=== PATIENT | female | born 1970 | race Caucasian/White ===

== ENCOUNTER 2016-09-20 20:59 | Inpatient (IN) | payer MEDICAID ==
[~2016-09-20] VITALS: Ht 162.6 cm; Wt 114.0 kg
--- NOTE | ~2016-09-20 | CON ---
PATIENT'S NAME: DARWIN TORRES [facility] AGE: 45 Y [address] ROOM: [place] [id number] LOCATION: [facility] [place] ADMIT DATE: 09/20/2016 Consultation DISCHARGE DATE: FAMILY PHYSICIAN: Sarah Ricardo MD ATTENDING PHYSICIAN: VINH LINDSAY V DATE OF CONSULTATION: 09/21/2016 HISTORY: The patient is a 45-year-old female, who has reported intermittent right flank pain for approximately 2 months. This past Sunday, she developed fevers and chills. The patient was seen in the emergency room on September 20 secondary to fevers, chills, and flank pain. Abdominopelvic CT scan revealed a 4 mm distal right ureter stone with hydronephrosis. The patient also was noted to have an elevated white count of 17,000 and a temperature of 102.1. Because of this, Urology was contacted for stent placement. The patient does report a previous history of nephrolithiasis, but passed a stone. Currently, she complains of right flank discomfort and dysuria. PAST MEDICAL HISTORY: Significant for depression, migraines, gastric reflux, and obesity. PAST OPERATIONS: Include carpal tunnel repair, elbow surgery, C-sections x3, and cholecystectomy. MEDICATIONS: Include: 1. Meloxicam. 2. Protonix. 3. Geodon. ALLERGIES: NONE. SOCIAL HISTORY: The patient is a nonsmoker and rarely consumes alcohol. PHYSICAL EXAMINATION: VITAL SIGNS: Pulse is 113, respirations 16, temperature is 102.2, blood pressure is 168/64. GENERAL: The patient is alert and oriented. HEENT: Eyes: Extraocular motion intact. LUNGS: Clear bilaterally. CARDIAC: Tacky without murmur, gallop, or rub. PATIENT'S NAME: DARWIN TORRES [facility] AGE: 45 Y [address] ROOM: [address] [address] LOCATION: [facility] [place] ADMIT DATE: 09/20/2016 Consultation DISCHARGE DATE: FAMILY PHYSICIAN: Sarah Ricardo MD ATTENDING PHYSICIAN: VINH LINDSAY V ABDOMEN: Obese, soft with right lower flank tenderness. Normoactive bowel sounds throughout. IMPRESSION: A 4 mm distal right ureter stone with obstruction with acute cystitis. PLAN: We will take to operating room urgently for cystoscopy and stent placement. Risks and benefits were discussed. MD BECKI CRUZ/karen /[id number] d: 09/21/16 0849 t: 10/09/16 0942, CONSULTATION REPORT
--- NOTE | ~2016-09-20 | DS ---
PATIENT'S NAME: DARWIN TORRES [facility] AGE: 45 Y [address] ROOM: [address] [address] LOCATION: [facility] [place] ADMIT DATE: 09/20/2016 Discharge Summary DISCHARGE DATE: 09/24/2016 FAMILY PHYSICIAN: Sarah Ricardo MD ATTENDING PHYSICIAN: Frank Valente V DISCHARGE DIAGNOSES: 1. Right-sided pyelonephritis. 2. Right hydronephrosis secondary to obstructed ureteric calculi. 3. Obstructed ureteric calculi status post cystoscopy and ureteral stent performed by Dr. Iniguez. 4. Acute kidney injury secondary to obstructive uropathy - resolved. 5. Hypokalemia - resolved. 6. Rhinosinusitis. DISCHARGE MEDICATION: 1. Gabapentin 300 mg at bedtime. 2. Meloxicam 50 mg daily. 3. Bupropion 150 mg daily. 4. Lexapro 20 mg daily. 5. Ranitidine 150 mg twice daily. 6. Multivitamin 1 tablet daily. 7. Acetaminophen 650 mg as needed. Additional medications added: 1. Florastor 250 mg b.i.d. for 2 weeks. 2. Levaquin 750 mg p.o. daily for 5 days. 3. Flonase 1 sq each nostril twice daily HOSPITALIZATION COURSE: In brief, this 45-year-old female with history of urolithiasis was admitted with fever, chills, and dysuria and was noted to have right-sided pyelonephritis. CT scan of the abdomen and pelvis showed obstructed stone in the distal right ureter producing moderate hydronephrosis as well as fatty liver. Dr. Iniguez was consulted and he performed a cystoscopy with removal of the stone and placement of ureteric stent. During the hospitalization, the patient was noted to have an acute kidney injury, which slowly improved with hydration. The patient was treated on ceftriaxone for pyelonephritis. Urine culture came back positive for Klebsiella that was sensitive to Levaquin. Urine output continued to improve. The patient remained afebrile during the hospitalization. FOLLOW UP INSTRUCTIONS: 1. Follow up with Dr. Iniguez in 1 week. The patient was requested to call the [facility] to setup an appointment. PATIENT'S NAME: DARWIN TORRES [facility] AGE: 45 Y [address] ROOM: [address] [address] LOCATION: [facility] [place] ADMIT DATE: 09/20/2016 Discharge Summary DISCHARGE DATE: 09/24/2016 FAMILY PHYSICIAN: Sarah Ricardo MD ATTENDING PHYSICIAN: Frank Valente V 2. Follow up with Dr. Sarah Ricardo in 3-5 days with a CBC and renal function panel. 3. Diet: No restrictions. 4. Activity: Ad loretta. CONDITION ON DISCHARGE: Good. The patient is hemodynamically and clinically stable. She was able to ambulate and tolerate with. ADOLFO DIANA MD BA/wilianl /[id number] cc: Sarah Ricardo MD d: 09/25/16 0416 t: 09/25/16 1016, DISCHARGE SUMMARY
--- NOTE | ~2016-09-20 | HP ---
PATIENT'S NAME: DARWIN TORRES [facility] AGE: 45 Y [address] ROOM: [place] [address] LOCATION: [facility] [place] ADMIT DATE: 09/20/2016 History & Physical DISCHARGE DATE: FAMILY PHYSICIAN: Sarah Ricardo MD ATTENDING PHYSICIAN: VINH LINDSAY V DATE OF SERVICE: CHIEF COMPLAINT: Fevers, chills, nausea, vomiting, and dysuria. HISTORY OF PRESENT ILLNESS: The patient is a 45-year-old female with past medical history of urolithiasis, which never required a procedure. She presented to the ER with approximately three days worth of dysuria, generalized, weakness, fevers, chills, nausea, and vomiting. She denies any true abdominal or costovertebral angle pain. No chest pain or shortness of breath, but she does admit to some near-syncope. In the ER, the patient was found to have a UTI and an KENIA. REVIEW OF SYSTEMS: All systems have been reviewed and are negative aside for pertinent positives mentioned above. PAST MEDICAL HISTORY: As reported by the patient is: 1. Urolithiasis. 2. GERD. 3. Depression. SURGICAL HISTORY: Significant for carpal tunnel repair two years ago. CURRENT MEDICATIONS: Reported by the patient are Protonix, Geodon, and meloxicam. FAMILY HISTORY: Significant for diabetes in her mother. SOCIAL HISTORY: The patient denies any active toxic habits, but does admit to exposure to secondhand smoke in her house. PHYSICAL EXAMINATION: VITAL SIGNS: Pulse is 113, blood pressure 168/84, temperature 102.1, PATIENT'S NAME: DARWIN TORRES [facility] AGE: 45 Y [address] ROOM: [address] [address] LOCATION: [facility] [place] ADMIT DATE: 09/20/2016 History & Physical DISCHARGE DATE: FAMILY PHYSICIAN: Sarah Ricardo MD ATTENDING PHYSICIAN: VINH LINDSAY V saturating 97% on room air, respirations are 16. GENERAL: Appears as a morbidly obese, middle-aged female, in no acute distress. NEUROLOGICAL: Exam shows no focal deficits. EYES: Pupils are equal and reactive to light. LYMPHATIC: Shows no cervical lymphadenopathy. ENDOCRINE: Shows no thyromegaly. LUNGS: Clear to auscultation both rodriguez. Heart rate is tachycardic and regular with no appreciable murmurs, gallops, or rubs. GI: Abdomen is soft, nontender, nondistended. : Reveals no costovertebral angle tenderness. Vascular exam 2+ pedal pulses. MUSCULOSKELETAL: Unremarkable. PSYCHIATRIC: Slightly flat mood and affect but preserved cognition. SKIN: Warm and dry. LABORATORY DATA: Studies performed in the ER are significant for lactate of 1.7, creatinine of 1.9. One set of negative cardiac enzymes. Her white count is 17.3. Normal coags. Urinalysis positive for leukocytes, nitrites, wbc, and bacteria. ASSESSMENT AND PLAN: This is a 45-year-old female, who will be admitted with: 1. Pyelonephritis. We will begin the patient on Rocephin. We will provide her with a probiotic for GI prophylaxis. 2. SIRS. The patient certainly meets criteria for SIRS and she will be monitored in the hospital and aggressively hydrated and provide with antibiotics. We will follow up her blood cultures. 3. Acute kidney injury. The patient does not carry a history of acute kidney injury and we will check a noncontrast CT scan to make sure there is no stone, obstruction, or both. If there is stone obstruction or both, we will request a Urology consultation. 4. Deep venous thrombosis, prophylaxis will be instituted if the patient is nonambulatory or if she stays in the hospital for more than 48 hours. 5. Depression, we will continue her Geodon. 6. Gastroesophageal reflux disease. We will continue her PPI. 7. Additional management will depend on clinical course. Time dedicated to this patient's encounter is 35 minutes. VINH LINDSAY MD PATIENT'S NAME: DARWIN TORRES [facility] AGE: 45 Y [address] ROOM: [address] [address] LOCATION: [facility] [place] ADMIT DATE: 09/20/2016 History & Physical DISCHARGE DATE: FAMILY PHYSICIAN: Sarah Ricardo MD ATTENDING PHYSICIAN: VINH LINDSAY/karen /[id number] D: [id number] T: [id number] HISTORY & PHYSICAL
--- NOTE | ~2016-09-20 | ER ---
PATIENT'S NAME: [facility] AGE: 45 Y [address] ROOM: [place] [address] [place] [facility] [place]: 09/20/2016 ER/Outpatient Report DISCHARGE DATE: FAMILY PHYSICIAN: Sarah Ricardo MD ATTENDING PHYSICIAN: VINH LINDSAY V Time of Arrival: 2058 hours. Time of Evaluation: 2058 hours. CHIEF COMPLAINT: Fevers and chills. HISTORY OF PRESENT ILLNESS: The patient is a 45-year-old female, who presents to the emergency department today with a chief complaint of fevers and chills. She reports this started on Sunday, 3 days prior to arrival. She has a temperature of 101.2. She has had some pain with urination and some nausea. Denies any vomiting. Does have some chronic diarrhea. Denies any constipation. Is having pain with urination, it is a burning type pain. It is currently 6/10 in severity. PAST MEDICAL HISTORY: Depression, migraines, and reflux. PAST SURGICAL HISTORY: Carpal tunnel, elbow bilaterally, ears, x3, and cholecystectomy. SOCIAL HISTORY: The patient denies any tobacco use. Reports seldom alcohol use. Denies any illicit drug use. ALLERGIES: NO KNOWN DRUG ALLERGIES. MEDICATIONS: Please see list. PRIMARY CARE DOCTOR: Sarah Ricardo M.D. REVIEW OF SYSTEMS: All systems are reviewed by myself and are negative with the exception of those discussed in the HPI and past medical history. PHYSICAL EXAMINATION: VITAL SIGNS: Weight 109.4 kg. Blood pressure 168/64, pulse 113, respiratory PATIENT'S NAME: [facility] AGE: 45 Y [address] ROOM: [address] [address] [place] [facility]: 09/20/2016 ER/Outpatient Report DISCHARGE DATE: FAMILY PHYSICIAN: Sarah Ricardo MD ATTENDING PHYSICIAN: VINH LINDSAY V rate 16, temperature 102.1, and oxygen saturation 97% on room air. GENERAL: The patient is a 45-year-old female, well developed, well nourished, mildly obese, in mild acute distress. HEENT: Head: Normocephalic, atraumatic. Pupils are equal, round, and reactive to light. Nares are patent bilaterally. Mucous membranes moist. NECK: Supple. There is no nuchal rigidity. CARDIOVASCULAR: Tachycardic. No murmurs, rubs, or gallops. LUNGS: Clear to auscultation bilaterally. No wheezes, rales, or rhonchi. ABDOMEN: Soft. Nontender. Mild CVA tenderness to palpation bilaterally. No rebound, rigidity, or guarding. Positive bowel sounds. MUSCULOSKELETAL: The patient moves all 4 extremities. SKIN: Warm and dry. There are no rashes or lesions noted. LABORATORY DATA AND X-RAYS: Labs and x-rays are obtained. CBC: White blood cell count 17.3, ANC of 14.6, otherwise unremarkable. Urinalysis shows 100 leukocyte esterase, positive nitrites, 100 protein, 5 ketones, 4 urobilinogen, 150 blood, 10 to 20 wbc's and epithelials, moderate bacteria. Urine hCG is negative. Lactate is 1.7. Coags are unremarkable. Influenza A and B are negative. Procalcitonin is elevated at 2.79. EKG is obtained, it is interpreted by myself and shows sinus tachycardia with a rate of 100, normal axis, normal interval, no ST elevation or ST depression, there is nonspecific T-wave. Two-view chest x-ray is obtained and shows no acute process. CMP is normal except for a creatinine of 1.9 and calcium of 8.0. LFTs normal. Cardiac enzymes are normal. IMPRESSION: 1. Acute infected 4.4mm ureterolithiasis. 2. Sepsis due to #1. 3. Acute kidney injury. 4. Initial visit. EMERGENCY DEPARTMENT COURSE: The patient is brought back to the examination room. Seen and evaluated by myself. IV is established. Laboratory analysis and imaging are obtained as described above. The patient is given 1 g of Tylenol p.o. as well as 4 mg of Zofran IV. She is given a liter of normal saline. She is given 1 g of Rocephin IV. I have discussed results with the patient and her daughter at the bedside. I have recommended admission to the hospital for further evaluation, treatment, and management. I have discussed the case with Dr. Lindsay. He has seen and evaluated the patient in the emergency department. He does agree to accept the patient for further evaluation, treatment, and management. Please see his dictation. I have contacted Dr. Iniguez with urology, he will plan for cystoscopy and further evaluation, treatment, and management now. DISPOSITION: The patient is admitted under the care of Dr. Lindsay in stable condition. PATIENT'S NAME: DARWIN TORRES [facility] AGE: 45 Y [address] ROOM: [place] [address] [place] [facility] [place] DATE: 09/20/2016 ER/Outpatient Report DISCHARGE DATE: FAMILY PHYSICIAN: Sarah Ricardo MD ATTENDING PHYSICIAN: VINH LINDSAY V DO ASHLEY BEAR/modl /[id number] d: 09/21/16645 t: 09/25/16605, OUTPATIENT REPORT
--- NOTE | ~2016-09-20 | OR ---
PATIENT'S NAME: DARWIN TORRES [facility] AGE: 45 Y [address] ROOM: [place] [address] LOCATION: [facility] [place] ADMIT DATE: 09/20/2016 OR/Procedure Report DISCHARGE DATE: FAMILY PHYSICIAN: Sarah Ricardo MD ATTENDING PHYSICIAN: VINH LINDSAY V SURGEON: Angie Cisneros MD AIR PUMPER: DATE OF PROCEDURE: 09/21/2016 PREOPERATIVE DIAGNOSIS: Distal right ureter stone with obstruction and acute cystitis. POSTOPERATIVE DIAGNOSIS: Distal right ureter stone with obstruction and acute cystitis. PROCEDURE PERFORMED: Cystoscopy with right stent placement. ANESTHESIA: MAC. COMPLICATIONS: None. INDICATION FOR PROCEDURE: The patient is a 45-year-old female with a 4 mm distal right ureter stone with pain and obstruction. The patient also has a temperature of a 102.1 with a white count of 17,000 and nitrate positive urine. The patient presents with a picture of urosepsis and obstruction. DETAILS OF PROCEDURE: After informed consent obtained, the patient was taken to the operating room. A MAC anesthetic was applied. She was placed in dorsal lithotomy position. The groin area is prepped and draped in normal sterile fashion. Cystoscope was introduced into the urethra and bladder without difficulty. The left ureteral orifice was identified and cannulated with a guidewire up into the renal pelvis. Next, a 6-Lithuanian multi-length ureteral stent was passed over the guidewire up into the renal pelvis. Radiograph imaging showed good position of the stent. Upon placement of the stent, the patient drained cloudy urine. The patient tolerated the procedure well, transferred to recovery room in good condition. ANGIE CISNEROS MD BECKI/modl PATIENT'S NAME: DARWIN TORRES [facility] AGE: 45 Y [address] ROOM: [place] [address] LOCATION: [facility] [place] ADMIT DATE: 09/20/2016 OR/Procedure Report DISCHARGE DATE: FAMILY PHYSICIAN: Sarah Ricardo MD ATTENDING PHYSICIAN: VINH LINDSAY V /[id number] CC: Sarah Ricardo MD d: 09/21/16914 t: 10/09/16944, OPERATIVE SUMMARY
[2016-09-20 21:27] LABS: BLOOD URINE 150 /UL (NEGATIVE); GLUCOSE URINE NEGATIVE (NEGATIVE); KETONE URINE 5 mg/dL (NEGATIVE); LEUKOCYTES URINE 100 /UL (NEGATIVE); NITRITE URINE POSITIVE (NEGATIVE); PROTEIN URINE 100 mg/dL (NEGATIVE); UROBILINOGEN URINE 4 mg/dL (NORMAL)
[2016-09-20 21:30] LABS: COLOR URINE YELLOW (YELLOW); TURBIDITY URINE 4+ (CLEAR)
[2016-09-20 21:37] LABS: BASOPHIL % 0.2 %; EOSINOPHIL % 0.1 %; HEMATOCRIT 41.5 % (33.0-46.0); HEMOGLOBIN 13.4 g/dL (10.0-15.0); IMMATURE GRANULOCYTE # 0.2 K/uL (0.0-0.3); IMMATURE GRANULOCYTE % 0.9 %; LYMPHOCYTE # 1.3 K/uL (0.8-4.0); LYMPHOCYTE % 7.4 %; MCH 29.8 pg (27.0-34.0); MCHC 32.3 gm/dL (32.0-36.5); MCV 92.4 fl (83.0-98.0); MONOCYTE # 1.3 K/uL (0.0-1.0); MONOCYTE % 7.3 %; MPV 9.6 fl (9.4-12.4); NEUTROPHIL # (ANC) 14.6 K/uL (1.8-7.8); NEUTROPHIL % 84.1 %; NRBC % 0 /100WBC (0-0.00); PLATELET COUNT 259 K/uL (150-450); RBC 4.49 M/uL (3.50-5.50); RDW-CV 13.1 % (11.9-14.6)
[2016-09-20 21:37] LABS: RBC URINE 0-2 #/HPF (NEGATIVE)
[2016-09-20 21:38] LABS: WBC 17.3 K/uL (4.0-11.0)
[2016-09-20 21:48] LABS: INR - (THERAPEUTIC) 1.1 (0.9-1.1); PROTIME 11.3 SECONDS (9.6-11.1); PTT 33 SECONDS (25-32)
[2016-09-20 21:52] LABS: BACTERIA URINE MODERATE (NEGATIVE)
[2016-09-20 21:53] LABS: AMORPHOUS URINE 2+ (NEGATIVE)
[2016-09-20 21:58] LABS: ALBUMIN 2.7 gm/dL (3.5-5.0); ALK PHOS 95 IU/L (33-138); ALT 20 IU/L (12-78); BLOOD UREA NITROGEN 18 mg/dL (6-24); CHLORIDE 103 mMol/L (96-110); CO2 22 mMol/L (22-32); CPK 52 IU/L (21-215); CREATININE 1.9 mg/dL (0.5-1.1); ESTIMATED GFR (MDRD EQUATION) 28; SODIUM 135 mMol/L (135-145); TOTAL BILIRUBIN 0.7 mg/dL (0.0-1.5); TOTAL PROTEIN 6.4 g/dL (6.0-8.4)
[2016-09-20 22:00] LABS: ANION GAP 13.8 (10.0-19.0); AST 15 IU/L (10-40); POTASSIUM 3.8 mMol/L (3.7-5.1)
[2016-09-21] MEDS ORDERED: NEURONTIN300 MG PO (02:24)
[2016-09-21] MEDS ORDERED: MOBIC15 MG PO (02:25)
[2016-09-21] MEDS ORDERED: WELLBUTRIN SR150 MG PO (02:25)
[2016-09-21] MEDS ORDERED: LEXAPRO20 MG PO (02:27)
[2016-09-21] MEDS ORDERED: HAIR, SKIN & N1 EAC1 PO (02:28)
[2016-09-21] MEDS ORDERED: ACID REDUCER150 MG PO (02:28)
[2016-09-21] MEDS ORDERED: TYLENOL325 MG PO (02:29)
--- NOTE | 2016-09-21 02:50 | NUR ---
Admission: Pt admitted after surgery for infected kidney stone. pt has been having back pain with N/V with fever and chills for 3 days. pt has no Nausea after surgery. pt had Cysto with right stent placement. pt pain with urination still. pt states she has some dizziness when getting up prior to admission, denies any on admission. no SOB, admitted on 2 L 02. IV in right forearm. elevated WBC and procal in ER> HX of frequent UTI, GERD, Joint Pain, MIgrains, [place], Depression. No known allergies. home med list on chart. SBAup to date on flu not eligible for pneumonia. no open sores or cuts noted. VSS.
--- NOTE | 2016-09-21 04:01 | NUR ---
Significant Event: Pt alert and Oriented x3. cooperative with cares. voided x3 post surgery missed hat. SBA. VSS. RA. SL when tolerating PO. DIet as tolerated. denies pain at this time. IV antibiotics. slept on and off through out the shift. denies and Nausea or SOB Follow up:
[2016-09-21 06:03] LABS: HEMATOCRIT 35.7 % (33.0-46.0); HEMOGLOBIN 11.4 g/dL (10.0-15.0); MCH 29.8 pg (27.0-34.0); MCHC 31.9 gm/dL (32.0-36.5); MCV 93.2 fl (83.0-98.0); MPV 9.6 fl (9.4-12.4); RBC 3.83 M/uL (3.50-5.50); RDW-CV 13.2 % (11.9-14.6); WBC 15.5 K/uL (4.0-11.0)
[2016-09-21 06:04] LABS: PLATELET COUNT 205 K/uL (150-450)
[2016-09-21 06:21] LABS: ANION GAP 11.5 (10.0-19.0); CALCIUM 7.8 mg/dL (8.5-10.5); CREATININE 1.7 mg/dL (0.5-1.1); MAGNESIUM 2.2 mg/dL (1.3-2.6); PHOSPHORUS 2.5 mg/dL (2.5-4.9); POTASSIUM 3.5 mMol/L (3.7-5.1)
[2016-09-21 06:53] LABS: ABSOLUTE NEUTROPHIL CT (ANC) 13.6 K/uL (1.8-7.8); BANDED NEUTROPHIL # 2.6 K/uL (0.0-0.1); BANDED NEUTROPHILS % 17 %; LYMPHOCYTE # 0.6 K/uL (0.8-4.0); LYMPHOCYTE % 4 %; MONOCYTE # 1.1 K/uL (0.0-1.0); SEGMENTED NEUTROPHIL % 71 %
--- NOTE | 2016-09-21 16:34 | NUR ---
Significant Event: Patient up this afternoon and showered. Michael Chavez PA-C ordered IV fluids to restart and restarted home medications. IV restarted to left anterior forearm prior to IV fluids being restarted. Up with standby assist. Patient did have some temp this afternoon. Oral high temp was 99.0, axillary high temp was 101.8. Michael Chavez PA-C and Dr. Garcia aware of temps. [place] given times one at 1401 with relief noted. Follow up: Continue to monitor.
--- NOTE | 2016-09-22 04:14 | NUR ---
Patient alert and oriented x3, very pleasant and cooperative, has slight irritation with urination, tolerating liquids well, ambulates well one assit with gaitbelt, stated she is feeling much better today, has rested well
[2016-09-22 05:07] LABS: HEMATOCRIT 33.9 % (33.0-46.0); MCH 30.3 pg (27.0-34.0); MCHC 32.4 gm/dL (32.0-36.5); MCV 93.4 fl (83.0-98.0); MPV 9.7 fl (9.4-12.4); PLATELET COUNT 224 K/uL (150-450); RBC 3.63 M/uL (3.50-5.50); RDW-CV 13.2 % (11.9-14.6)
[2016-09-22 05:09] LABS: WBC 18.8 K/uL (4.0-11.0)
[2016-09-22 05:19] LABS: ANION GAP 11.3 (10.0-19.0); CALCIUM 7.9 mg/dL (8.5-10.5); CREATININE 1.4 mg/dL (0.5-1.1); MAGNESIUM 2.3 mg/dL (1.3-2.6); PHOSPHORUS 2.8 mg/dL (2.5-4.9); POTASSIUM 4.3 mMol/L (3.7-5.1)
[2016-09-22 05:20] LABS: ALBUMIN 1.9 gm/dL (3.5-5.0)
[2016-09-22 06:05] LABS: ABSOLUTE NEUTROPHIL CT (ANC) 14.3 K/uL (1.8-7.8); BANDED NEUTROPHIL # 4.1 K/uL (0.0-0.1); BANDED NEUTROPHILS % 22 %; LYMPHOCYTE # 3.8 K/uL (0.8-4.0); LYMPHOCYTE % 20 %; SEGMENTED NEUTROPHIL # 10.2 K/uL (1.8-7.8); SEGMENTED NEUTROPHIL % 54 %
--- NOTE | 2016-09-22 12:56 | NUR ---
SPOKE TO PATIENT REGARDING CM AND OUR ROLE. PATIENT LIVES IN OWN HOME WITH HER S.O. AND " THREE CHILDREN" PATIENT DOES NOT ANTICPATE ANY DISCHARGE NEEDS AT THIS TIME. CM WILL CONT TO FOLLOW NEEDED.
--- NOTE | 2016-09-22 15:28 | NUR ---
Significant Event: PT AOX3. BPs RUNNING SLIGHTLY HYPOTENSIVE 98/46-93/48. AFEBRILE. AMBULATE IN CASTRO WITH FAMILY X1. UP AD [place] IN ROOM. TOLERATING REGULAR DIET. IV SALINE LOCKED TO L FA. LABS ORDERED FOR AM. C/O HEADACHE THIS AM, HAS DRANK SOME CAFFEINE AND STATES ITS BETTER. Follow up: LABS IN AM, POSSIBLE DC HOME TOMORROW?
[2016-09-23 04:51] LABS: HEMOGLOBIN 10.7 g/dL (10.0-15.0); MCH 29.9 pg (27.0-34.0); MCHC 32.4 gm/dL (32.0-36.5); MCV 92.2 fl (83.0-98.0); MPV 9.4 fl (9.4-12.4); RBC 3.58 M/uL (3.50-5.50); RDW-CV 13.5 % (11.9-14.6); WBC 13.5 K/uL (4.0-11.0)
[2016-09-23 05:01] LABS: PLATELET COUNT 275 K/uL (150-450)
--- NOTE | 2016-09-23 05:02 | NUR ---
09/20 PYLEONEPHRITIS AND CYSTO WITH STENT PLACEMENT ON 09/21. GOOD PO INTAKE AND GOOD URINE OUTPUT THIS SHIFT. C/O OF PAIN MOSTLY HEADACHE RELATED AND PAIN CONTROLLED WITH NORCO AND RATED PAIN LAST @0300 08/01. LFA PIV SALINE LOCKED, UP AD [place] IN ROOM BUT USUALLY CALLS FOR ASSIST. PATIENT WILL DC HOME ON DISCHARGE.
[2016-09-23 05:08] LABS: ANION GAP 13.8 (10.0-19.0); CALCIUM 8.1 mg/dL (8.5-10.5); CREATININE 1.1 mg/dL (0.5-1.1); MAGNESIUM 2.1 mg/dL (1.3-2.6); PHOSPHORUS 2.8 mg/dL (2.5-4.9); POTASSIUM 3.8 mMol/L (3.7-5.1)
[2016-09-23 05:09] LABS: ALBUMIN 1.8 gm/dL (3.5-5.0)
[2016-09-23 06:13] LABS: ABSOLUTE NEUTROPHIL CT (ANC) 11.5 K/uL (1.8-7.8); BANDED NEUTROPHIL # 2.7 K/uL (0.0-0.1); BANDED NEUTROPHILS % 20 %; LYMPHOCYTE # 1.4 K/uL (0.8-4.0); LYMPHOCYTE % 10 %; MONOCYTE # 0.5 K/uL (0.0-1.0); SEGMENTED NEUTROPHIL # 8.8 K/uL (1.8-7.8); SEGMENTED NEUTROPHIL % 65 %
--- NOTE | 2016-09-23 16:38 | NUR ---
Significant Event: PT AOX3. VSS, ON RA, AFEBRILE. UP AD [place] IN ROOM. FAMILY IN TO VISIT OFF AND ON TODAY. C/O SINUS HEADACHE AND R FLANK PAIN, BURNING AT THE END OF URINATION. PRN NORCO X1, RELIEF NOTED. TOLERATING A REGULAR DIET. IV SALINE LOCKED. Follow up: CONTINUE TO MONITOR LABS
--- NOTE | 2016-09-24 05:04 | NUR ---
Significant Event: Patient started her period last evening. No pain medications given this shift. Voiding adequately. Up ad-loretta. Follow up: Continue to monitor.
[2016-09-24 05:11] LABS: HEMATOCRIT 33.3 % (33.0-46.0); HEMOGLOBIN 10.7 g/dL (10.0-15.0); MCH 29.7 pg (27.0-34.0); MCHC 32.1 gm/dL (32.0-36.5); MCV 92.5 fl (83.0-98.0); MPV 9.5 fl (9.4-12.4); RDW-CV 13.3 % (11.9-14.6); WBC 11.2 K/uL (4.0-11.0)
[2016-09-24 05:14] LABS: PLATELET COUNT 333 K/uL (150-450)
[2016-09-24 05:26] LABS: CALCIUM 8.4 mg/dL (8.5-10.5); PHOSPHORUS 3.9 mg/dL (2.5-4.9)
[2016-09-24 05:30] LABS: ALBUMIN 1.9 gm/dL (3.5-5.0)
[2016-09-24 05:50] LABS: BANDED NEUTROPHIL # 1.7 K/uL (0.0-0.1); BANDED NEUTROPHILS % 15 %; LYMPHOCYTE # 2.2 K/uL (0.8-4.0); LYMPHOCYTE % 20 %; MONOCYTE # 0.9 K/uL (0.0-1.0); SEGMENTED NEUTROPHIL # 6.3 K/uL (1.8-7.8); SEGMENTED NEUTROPHIL % 56 %
--- NOTE | 2016-09-24 13:12 | NUR ---
A - PT SCREENED D/T LOS. HT: 64" WT: 251# BMI: 43.1 LABS: ALB 1.9, WBC 11.2 MEDS: ROCEPHIN, PEPCID, FLORASTOR, NAUSEA DIET: REG. INTAKE: 50-100% NEEDS: 8460-5936 KCAL (11-14 KCAL/KG), 83-110 G PRO (1.5-2 G/KG IBW), 2280 ML FLUID (20 ML/KG) D - NO NUTRITION RELATED DIAGNOSIS IDENTIFIED AT THIS TIME. I - GOAL FOR INTAKE TO REMAIN 50-100% FOR DURATION OF STAY. M/E - WILL ASSIST NEEDED.
[2016-09-24] MEDS ORDERED: FLORASTOR250 MG PO (14:46)
[2016-09-24] MEDS ORDERED: LEVAQUIN 750 M750 MG PO (14:48)
[2016-09-29] MEDS ORDERED: ELAVIL75 MG PO (08:57)
[2016-09-29] MEDS ORDERED: IBUPROFEN800 MG PO (08:57)
== END 2016-09-24 15:35 | disposition disaster alternative care site (69) | DRG 872 ==
LOC: GMED 20:59 → GMSU 22:53
PROVIDERS: Emergency Medicine; Physician Assistant; Student in an Organized Health Care Education/Training Program; ADMIT Internal Medicine
PROC: 0T768DZ Dilation of Right Ureter with Intraluminal Device, Via Natural or Artificial Opening Endoscopic (ICD-10-PCS; principal; 2016-09-21)
DX: A41.9 Sepsis, unspecified organism (principal); N17.9 Acute kidney failure, unspecified; N13.6 Pyonephrosis; Z68.41 Body mass index [BMI] 40.0-44.9, adult; Z87.442 Personal history of urinary calculi; F32.9 Major depressive disorder, single episode, unspecified; K21.9 Gastro-esophageal reflux disease without esophagitis; E66.01 Morbid (severe) obesity due to excess calories; E87.6 Hypokalemia; J32.9 Chronic sinusitis, unspecified
CPT/HCPCS: C1769; J0696; J2405; J7030; J7040; J7050

== ENCOUNTER 2016-10-09 06:58 | Day surgery (SDC) | payer MEDICAID ==
[~2016-10-09] VITALS: Ht 163.8 cm; Wt 108.8 kg
--- NOTE | ~2016-10-09 | OR ---
PATIENT'S NAME: DARWIN TORRES [facility] AGE: 45 Y [address] ROOM: [place] [address] LOCATION: [facility] [place] ADMIT DATE: 10/09/2016 OR/Procedure Report DISCHARGE DATE: FAMILY PHYSICIAN: Sarah Ricardo MD ATTENDING PHYSICIAN: Adela Iniguez SURGEON: Adela Iniguez MD TEST DESIGNER: DATE OF PROCEDURE: 10/09/2016 PREOPERATIVE DIAGNOSIS: Distal right ureter stone. POSTOPERATIVE DIAGNOSIS: Distal right ureter stone. PROCEDURE PERFORMED: Cystoscopy, stent removal, right ureteroscopy and laser lithotripsy, and stent placement with dangler attached. ANESTHESIA: MAC. COMPLICATIONS: None. INDICATION FOR PROCEDURE: The patient is a 45-year-old female, who is status post cystoscopy and right stent placement for a 5 mm distal right ureter stone with obstruction and sepsis. The patient now presents for definitive therapy. DETAILS OF PROCEDURE: After informed consent obtained, the patient was taken to the operating room. A MAC anesthetic was applied. She was placed in the dorsal lithotomy position. The groin area was prepped and draped in normal sterile fashion. Cystoscope was introduced into the urethra and bladder without difficulty. The stent was identified in the right ureteral orifice, engaged with forceps and partially removed. A guidewire was then passed through the stent up into the renal pelvis and then the stent was completely removed. Ureteroscope was introduced into the distal ureter and driven up to the level of the stone. I use a Tricep basket in an attempt to remove the stone, but the stone was stuck, therefore, basketing was abandoned. I then introduced the holmium laser fiber and this was used to fragment the stone into multiple smaller pieces. Following this, the ureteroscope was removed and the cystoscope back-loaded over the guidewire. Next, a 6-Spanish multi- length ureteral stent with the dangler attached was passed up into the renal pelvis. Radiographic imaging showed good position of the stent. The bladder was empty and the procedure terminated. The patient tolerated the procedure well and was transferred to recovery room in good condition. The patient is instructed to remove her stent in approximately 4 days. PATIENT'S NAME: DARWIN TORRES [facility] AGE: 45 Y [address] ROOM: [place] [address] LOCATION: [facility] [place] ADMIT DATE: 10/09/2016 OR/Procedure Report DISCHARGE DATE: FAMILY PHYSICIAN: Sarah Ricardo MD ATTENDING PHYSICIAN: Adela Iniguez MD BECKI CRUZ/karen /[id number] d: 10/09/16 1038 t: 10/30/16 1914, OPERATIVE SUMMARY
[~2016-10-09 06:58] MED LIST: ACID REDUCER150 MG PO; ELAVIL75 MG PO; FLORASTOR250 MG PO; HAIR, SKIN & N1 EAC1 PO; IBUPROFEN800 MG PO; LEVAQUIN 750 M750 MG PO; LEXAPRO20 MG PO; MOBIC15 MG PO; NEURONTIN300 MG PO; TYLENOL325 MG PO; WELLBUTRIN SR150 MG PO
[2016-10-09] MEDS ORDERED: FLONASE 50 MCG/16 GM NOSE (07:25)
[2016-10-09] MEDS ORDERED: TYLENOL WITH C1 EACH PO (09:40)
[2016-10-09] MEDS ORDERED: BACTRIM DS1 TAB PO (09:41)
== END 2016-10-09 10:47 | disposition disaster alternative care site (69) ==
LOC: GSDC 06:58
PROC: 0TF68ZZ Fragmentation in Right Ureter, Via Natural or Artificial Opening Endoscopic (ICD-10-PCS; principal; 2016-10-09)
PROC: 0T768DZ Dilation of Right Ureter with Intraluminal Device, Via Natural or Artificial Opening Endoscopic (ICD-10-PCS; 2016-10-09)
DX: N13.2 Hydronephrosis with renal and ureteral calculous obstruction (principal); B96.1 Klebsiella pneumoniae [K. pneumoniae] as the cause of diseases classified elsewhere; N17.9 Acute kidney failure, unspecified; E87.6 Hypokalemia; J32.9 Chronic sinusitis, unspecified; K76.0 Fatty (change of) liver, not elsewhere classified; Z79.899 Other long term (current) drug therapy; Z98.51 Tubal ligation status; Z90.49 Acquired absence of other specified parts of digestive tract; Z98.890 Other specified postprocedural states
CPT/HCPCS: C1769; J1956; J2001; J2405; J7120

== ENCOUNTER → 2016-10-18 | Outpatient (CLI) | payer MEDICAID ==
[~2016-10-18] MED LIST changes: +BACTRIM DS1 TAB PO; +FLONASE 50 MCG/16 GM NOSE; +TYLENOL WITH C1 EACH PO
== END | disposition disaster alternative care site (69) ==
LOC: LFPA 07:21
DX: Z12.4 Encounter for screening for malignant neoplasm of cervix (principal)
CPT/HCPCS: G0145